=== PATIENT | female | born 1930 | race Caucasian/White ===

== ENCOUNTER 2019-01-30 15:26 | Inpatient (IN) | payer OTHER ==
[2019-01-30] MEDS ORDERED: DOCUSATE SODIUM 100 MG CAP PO (16:30)
[2019-01-30] MEDS ORDERED: BISACODYL (EC) 5 MG TAB PO (16:30)
[2019-01-30] MEDS ORDERED: ONDANSETRON 4 MG INJ IV (16:30)
[2019-01-30] MEDS ORDERED: NACL 0.9% 3 ML SYG IV (16:30)
[2019-01-30] MEDS ORDERED: ACETAMINOPHEN 650 MG SUPP PR (16:30)
[2019-01-30] MEDS ORDERED: ACETAMINOPHEN 325 MG TAB PO (16:30)
[2019-01-30] MEDS ORDERED: HYDROCODONE/APAP (5/325) TAB PO (16:30)
[2019-01-30] MEDS ORDERED: morphine 2 MG INJ IV (16:30)
[2019-01-30 17:22] LABS: MAGNESIUM 1.5 mg/dl (1.7-2.5)
[2019-01-30 17:22] LABS: ANION GAP 7 (5-13); BLOOD UREA NITROGEN 11 mg/dl (7-20); CALCIUM 7.5 mg/dl (8.4-10.2); CARBON DIOXIDE 22 mmol/L (21-31); CHLORIDE 89 mmol/L (97-110); CREATININE 0.62 mg/dl (0.44-1.00); GLUCOSE 86 mg/dl (70-220); URIC ACID 3.4 mg/dl (3.1-7.9)
[2019-01-30 17:41] LABS: SODIUM 118 mmol/L (135-144)
[2019-01-30 17:59] LABS: OSMOLALITY 240 mOsm/kg (280-295)
[2019-01-30] MEDS: NACL 3% 500 ML IV (18:27)
[2019-01-30] MEDS: MAGNESIUM SULFATE 2 GM/50 ML 50 ML IVPB (18:37)
[2019-01-30 20:38] LABS: URIC ACID 3.6 mg/dl (3.1-7.9)
[2019-01-30] MEDS ORDERED: FAMOTIDINE 20 MG TAB PO (21:00)
[2019-01-30] MEDS ORDERED: SOD CHLORIDE 0.9% 1,000 ML IV (23:00)
[2019-01-30] MEDS: FAMOTIDINE 20 MG TAB PEG (23:03)
[2019-01-30 23:27] LABS: SODIUM 119 mmol/L (135-144)
[2019-01-30 23:27] LABS: ADD UMIC YES; UR ASCORBIC ACID NEGATIVE (NEGATIVE); UR BILIRUBIN (Dip) NEGATIVE (NEGATIVE); UR BLOOD (Dip) 3+ mg/dL (NEGATIVE); UR CLARITY SLIGHTLY CLOUDY (CLEAR); UR COLOR RED (YELLOW); UR GLUCOSE (Dip) NEGATIVE (NEGATIVE); UR KETONES (Dip) TRACE mg/dL (NEGATIVE); UR LEUKOCYTE ESTERASE (Dip) 3+ Leu/ul (NEGATIVE); UR NITRITE (Dip) NEGATIVE (NEGATIVE); UR RBC > 182 /HPF (0-5); UR SPECIFIC GRAVITY (Dip) 1.009 (1.003-1.030); UR TOTAL PROTEIN (Dip) 1+ mg/dl (NEGATIVE); UR UROBILINOGEN (Dip) NEGATIVE (NEGATIVE); UR WBC 45 /HPF (0-5)
[2019-01-30 23:40] LABS: CREATININE,URINE RANDOM 26.03 mg/dl (20-320)
[2019-01-30 23:40] LABS: SODIUM,URINE RANDOM 86 mmol/L (30-90)
[2019-01-30 23:57] LABS: OSMOLALITY,URINE 313 mOsm/kg (250-1200)
[2019-01-31 05:00] LABS: ADD MAN DIFF? NO; HAAIG REFLEX REFLEX FILED
[2019-01-31 05:10] LABS: ABNORMAL IP MESSAGE 1; BASOPHILS % 0.6 % (0.0-2.0); EOSINOPHILS # 0.1 10^3/ul (0.0-0.5); EOSINOPHILS % 2.7 % (0.0-7.0); HEMOGLOBIN 10.1 g/dl (12.0-16.0); LYMPHOCYTES # 0.5 10^3/ul (0.8-2.9); LYMPHOCYTES % 10.4 % (15.0-51.0); MEAN CORPUSCULAR HEMOGLOBIN 29.5 pg (29.0-33.0); MEAN CORPUSCULAR HGB CONC 33.7 g/dl (32.0-37.0); MEAN CORPUSCULAR VOLUME 87.7 fl (82.0-101.0); MEAN PLATELET VOLUME 9.2 fl (7.4-10.4); MONOCYTE # 0.5 10^3/ul (0.3-0.9); MONOCYTES % 9.6 % (0.0-11.0); NEUTROPHIL # 3.6 10^3/ul (1.6-7.5); NEUTROPHILS % 74.8 % (39.0-77.0); PLATELET COUNT 701 10^3/UL (140-415); RED BLOOD COUNT 3.42 10^6/ul (4.20-5.40); RED CELL DISTRIBUTION WIDTH 14.4 % (11.5-14.5)
[2019-01-31 05:10] LABS: WHITE BLOOD COUNT 4.8 10^3/ul (4.8-10.8)
[2019-01-31 05:15] LABS: PATH REVIEW? YES-PATH TO CONFIRM; POSITIVE DIFF @See below
[2019-01-31 05:26] LABS: HEMOGLOBIN A1C 5.1 % (0-5.9)
[2019-01-31 05:29] LABS: ALANINE AMINOTRANSFERASE 50 IU/L (13-69); ALBUMIN 2.6 g/dl (3.3-4.9); ALBUMIN/GLOBULIN RATIO 0.78; ALKALINE PHOSPHATASE 193 IU/L (42-121); ANION GAP 7 (5-13); ASPARTATE AMINO TRANSFERASE 84 IU/L (15-46); BILIRUBIN,INDIRECT 0.4 mg/dl (0-1.1); BILIRUBIN,TOTAL 0.4 mg/dl (0.2-1.3); BLOOD UREA NITROGEN 9 mg/dl (7-20); CALCIUM 7.7 mg/dl (8.4-10.2); CARBON DIOXIDE 21 mmol/L (21-31); CHLORIDE 95 mmol/L (97-110); CREATININE 0.66 mg/dl (0.44-1.00); GLUCOSE 79 mg/dl (70-220); MAGNESIUM 2.5 mg/dl (1.7-2.5); PHOSPHORUS 2.3 mg/dl (2.5-4.9); POTASSIUM 3.5 mmol/L (3.5-5.1); SODIUM 123 mmol/L (135-144); TOTAL PROTEIN 5.9 g/dl (6.1-8.1)
[2019-01-31 05:30] LABS: CHOL/HDL RATIO 7.5 RATIO; HDL CHOLESTEROL 34 mg/dl (33-92); LDL CHOLESTEROL,CALCULATED 199 mg/dl; TRIGLYCERIDES 108 mg/dl (0-149)
[2019-01-31 05:30] LABS: CHOLESTEROL 255 mg/dl (100-200)
[2019-01-31 05:59] LABS: HEPATITIS B SURFACE ANTIGEN NEGATIVE (NEGATIVE)
[2019-01-31 06:17] LABS: HEPATITIS B CORE ANTIBODY NEGATIVE (NEGATIVE); HEPATITIS C VIRAL ANTIBODY NEGATIVE (NEGATIVE)
[2019-01-31 08:18] LABS: INR 0.93; PROTIME 12.6 Sec (11.9-14.9)
[2019-01-31 08:20] LABS: BAND NEUTROPHILS #M 0.1 10^3/ul (0.0-0.6); BAND NEUTROPHILS % (M) 3 % (0-4); BASOPHILS % (M) 1 % (0-2); BURR CELLS 1+ (0-0); EOSINOPHILS % (M) 1 % (0-7); LYMPHOCYTES #M 0.2 10^3/ul (0.8-2.9); LYMPHOCYTES % (M) 5 % (15-51); MONOCYTE #M 0.2 10^3/ul (0.3-0.9); MONOCYTES % (M) 5 % (0-11); OVALOCYTES 1+ (0-0); PLATELET ESTIMATE INCREASED; POIKILOCYTOSIS 1+ (0-0); POLYCHROMASIA 1+ (0-0); REACTIVE LYMPHOCYTES% (M) 1 % (0-0); SEGMENTED NEUTROPHILS (M) % 84 % (39-77); SMUDGE%M 4 % (0-0)
[2019-01-31] MEDS ORDERED: ENOXAPARIN 30 MG/0.3 ML SYG SC (09:00)
[2019-01-31 12:45] LABS: SODIUM 124 mmol/L (135-144)
[2019-01-31] MEDS: SOD CHLORIDE 0.9% 1,000 ML IV (19:08)
[2019-01-31 19:23] LABS: SODIUM 123 mmol/L (135-144)
[2019-01-31] MEDS: FAMOTIDINE 20 MG TAB PEG (20:52)
[2019-01-31] MEDS: HYDROCODONE/APAP (5/325) TAB PEG (22:54)
[2019-02-01 04:51] LABS: ADD MAN DIFF? NO
[2019-02-01 04:59] LABS: WHITE BLOOD COUNT 3.7 10^3/ul (4.8-10.8)
[2019-02-01 04:59] LABS: BASOPHILS % 0.5 % (0.0-2.0); EOSINOPHILS # 0.3 10^3/ul (0.0-0.5); EOSINOPHILS % 8.4 % (0.0-7.0); HEMATOCRIT 28.4 % (37.0-47.0); HEMOGLOBIN 9.6 g/dl (12.0-16.0); LYMPHOCYTES # 0.6 10^3/ul (0.8-2.9); LYMPHOCYTES % 16.8 % (15.0-51.0); MEAN CORPUSCULAR HEMOGLOBIN 30.2 pg (29.0-33.0); MEAN CORPUSCULAR HGB CONC 33.8 g/dl (32.0-37.0); MEAN CORPUSCULAR VOLUME 89.3 fl (82.0-101.0); MEAN PLATELET VOLUME 9.3 fl (7.4-10.4); MONOCYTE # 0.4 10^3/ul (0.3-0.9); MONOCYTES % 11.4 % (0.0-11.0); NEUTROPHIL # 2.3 10^3/ul (1.6-7.5); NEUTROPHILS % 61.5 % (39.0-77.0); PLATELET COUNT 636 10^3/UL (140-415); RED BLOOD COUNT 3.18 10^6/ul (4.20-5.40); RED CELL DISTRIBUTION WIDTH 14.6 % (11.5-14.5)
[2019-02-01 05:49] LABS: ANION GAP 3 (5-13); BLOOD UREA NITROGEN 12 mg/dl (7-20); CALCIUM 7.8 mg/dl (8.4-10.2); CARBON DIOXIDE 25 mmol/L (21-31); CHLORIDE 99 mmol/L (97-110); GLUCOSE 105 mg/dl (70-220); MAGNESIUM 1.9 mg/dl (1.7-2.5); POTASSIUM 3.2 mmol/L (3.5-5.1); SODIUM 127 mmol/L (135-144)
[2019-02-01] MEDS: POTASSIUM CHLORIDE 20 MEQ POWDER FOR ORAL SOLN GTB (07:52)
[2019-02-01] MEDS: MAGNESIUM SULFATE 1 GM/D5W 100 ML IVPB (07:52)
[2019-02-01 09:06] LABS: OCCULT BLOOD STOOL POSITIVE (NEGATIVE)
[2019-02-01] MEDS: ENOXAPARIN 30 MG/0.3 ML SYG SC (09:32)
[2019-02-01] MEDS: SOD CHLORIDE 0.9% 1,000 ML IV ×2 (09:32→21:11)
[2019-02-01 13:48] LABS: ANION GAP 3 (5-13); BLOOD UREA NITROGEN 11 mg/dl (7-20); CALCIUM 7.6 mg/dl (8.4-10.2); CARBON DIOXIDE 23 mmol/L (21-31); CHLORIDE 103 mmol/L (97-110); CREATININE 0.47 mg/dl (0.44-1.00); GLUCOSE 106 mg/dl (70-220); SODIUM 129 mmol/L (135-144)
[2019-02-01] MEDS: LABETALOL HCL 20MG INJ IV (16:38)
[2019-02-01] MEDS ORDERED: HYDROCORTISONE 25 MG SUPP PR (17:30)
[2019-02-01] MEDS ORDERED: METOPROLOL 25 MG TAB GTB (17:30)
[2019-02-01 17:40] LABS: ANION GAP 2 (5-13); BLOOD UREA NITROGEN 12 mg/dl (7-20); CALCIUM 7.7 mg/dl (8.4-10.2); CARBON DIOXIDE 25 mmol/L (21-31); CHLORIDE 102 mmol/L (97-110); CREATININE 0.49 mg/dl (0.44-1.00); GLUCOSE 111 mg/dl (70-220); POTASSIUM 4.7 mmol/L (3.5-5.1); SODIUM 129 mmol/L (135-144)
[2019-02-01] MEDS: FAMOTIDINE 20 MG TAB PEG (21:10)
[2019-02-01] MEDS: METOPROLOL 25 MG TAB GTB (21:11)
[2019-02-01 21:33] LABS: ANION GAP 2 (5-13); BLOOD UREA NITROGEN 12 mg/dl (7-20); CALCIUM 7.4 mg/dl (8.4-10.2); CARBON DIOXIDE 23 mmol/L (21-31); CHLORIDE 101 mmol/L (97-110); CREATININE 0.44 mg/dl (0.44-1.00); GLUCOSE 94 mg/dl (70-220); POTASSIUM 4.8 mmol/L (3.5-5.1); SODIUM 126 mmol/L (135-144)
[2019-02-02 04:57] LABS: ADD MAN DIFF? NO
[2019-02-02 05:39] LABS: ANION GAP 3 (5-13); BLOOD UREA NITROGEN 11 mg/dl (7-20); CALCIUM 7.5 mg/dl (8.4-10.2); CARBON DIOXIDE 24 mmol/L (21-31); CHLORIDE 100 mmol/L (97-110); CREATININE 0.44 mg/dl (0.44-1.00); GLUCOSE 86 mg/dl (70-220); POTASSIUM 4.9 mmol/L (3.5-5.1); SODIUM 127 mmol/L (135-144)
[2019-02-02 06:32] LABS: WHITE BLOOD COUNT 5.6 10^3/ul (4.8-10.8)
[2019-02-02 06:32] LABS: BASOPHILS % 0.5 % (0.0-2.0); EOSINOPHILS # 0.6 10^3/ul (0.0-0.5); EOSINOPHILS % 10.4 % (0.0-7.0); HEMATOCRIT 28.2 % (37.0-47.0); HEMOGLOBIN 9.3 g/dl (12.0-16.0); LYMPHOCYTES # 0.9 10^3/ul (0.8-2.9); LYMPHOCYTES % 16.9 % (15.0-51.0); MEAN CORPUSCULAR HEMOGLOBIN 29.8 pg (29.0-33.0); MEAN CORPUSCULAR VOLUME 90.4 fl (82.0-101.0); MEAN PLATELET VOLUME 9.4 fl (7.4-10.4); MONOCYTE # 0.5 10^3/ul (0.3-0.9); MONOCYTES % 9.7 % (0.0-11.0); NEUTROPHIL # 3.4 10^3/ul (1.6-7.5); NEUTROPHILS % 61.6 % (39.0-77.0); PLATELET COUNT 623 10^3/UL (140-415); RED BLOOD COUNT 3.12 10^6/ul (4.20-5.40); RED CELL DISTRIBUTION WIDTH 15.3 % (11.5-14.5)
[2019-02-02] MEDS: METOPROLOL 25 MG TAB GTB ×2 (08:28→21:00)
[2019-02-02] MEDS: LACTOBACILLUS RHAMNOSUS CAP GTB ×2 (08:28→21:19)
[2019-02-02] MEDS: ENOXAPARIN 30 MG/0.3 ML SYG SC (08:29)
[2019-02-02 13:44] LABS: ANION GAP 2 (5-13); BLOOD UREA NITROGEN 13 mg/dl (7-20); CALCIUM 7.7 mg/dl (8.4-10.2); CARBON DIOXIDE 25 mmol/L (21-31); CHLORIDE 98 mmol/L (97-110); CREATININE 0.47 mg/dl (0.44-1.00); GLUCOSE 104 mg/dl (70-220); POTASSIUM 4.3 mmol/L (3.5-5.1); SODIUM 125 mmol/L (135-144)
[2019-02-02 15:27] LABS: CREATININE, RANDOM URINE 29 mg/dL (20-275); MICROALBUMIN 6.2 mg/dL; MICROALBUMIN/CREATININE RATIO 214 (<30)
[2019-02-02 18:32] LABS: ANION GAP 4 (5-13); BLOOD UREA NITROGEN 14 mg/dl (7-20); CALCIUM 7.9 mg/dl (8.4-10.2); CARBON DIOXIDE 23 mmol/L (21-31); CHLORIDE 97 mmol/L (97-110); CREATININE 0.43 mg/dl (0.44-1.00); GLUCOSE 116 mg/dl (70-220); POTASSIUM 4.5 mmol/L (3.5-5.1); SODIUM 124 mmol/L (135-144)
[2019-02-02] MEDS: FAMOTIDINE 20 MG TAB PEG (21:19)
[2019-02-02 22:00] LABS: ANION GAP 4 (5-13); BLOOD UREA NITROGEN 15 mg/dl (7-20); CARBON DIOXIDE 25 mmol/L (21-31); CHLORIDE 96 mmol/L (97-110); CREATININE 0.48 mg/dl (0.44-1.00); GLUCOSE 104 mg/dl (70-220); POTASSIUM 4.5 mmol/L (3.5-5.1); SODIUM 125 mmol/L (135-144)
[2019-02-03 05:12] LABS: ADD MAN DIFF? NO
[2019-02-03 05:18] LABS: BASOPHILS % 0.5 % (0.0-2.0); EOSINOPHILS # 0.6 10^3/ul (0.0-0.5); EOSINOPHILS % 9.5 % (0.0-7.0); HEMATOCRIT 26.1 % (37.0-47.0); HEMOGLOBIN 8.9 g/dl (12.0-16.0); LYMPHOCYTES # 1.1 10^3/ul (0.8-2.9); LYMPHOCYTES % 18.8 % (15.0-51.0); MEAN CORPUSCULAR HGB CONC 34.1 g/dl (32.0-37.0); MEAN CORPUSCULAR VOLUME 87.9 fl (82.0-101.0); MEAN PLATELET VOLUME 9.2 fl (7.4-10.4); MONOCYTE # 0.7 10^3/ul (0.3-0.9); MONOCYTES % 11.4 % (0.0-11.0); NEUTROPHIL # 3.5 10^3/ul (1.6-7.5); NEUTROPHILS % 58.8 % (39.0-77.0); PLATELET COUNT 602 10^3/UL (140-415); RED BLOOD COUNT 2.97 10^6/ul (4.20-5.40)
[2019-02-03 05:18] LABS: WHITE BLOOD COUNT 5.9 10^3/ul (4.8-10.8)
[2019-02-03 05:47] LABS: ANION GAP 3 (5-13); BLOOD UREA NITROGEN 16 mg/dl (7-20); CALCIUM 8.3 mg/dl (8.4-10.2); CARBON DIOXIDE 26 mmol/L (21-31); CHLORIDE 95 mmol/L (97-110); CREATININE 0.51 mg/dl (0.44-1.00); GLUCOSE 94 mg/dl (70-220); POTASSIUM 4.7 mmol/L (3.5-5.1); SODIUM 124 mmol/L (135-144)
[2019-02-03] MEDS: CLOPIDOGREL 75 MG TAB GTB (08:04)
[2019-02-03] MEDS: METOPROLOL 25 MG TAB GTB ×2 (08:04→20:25)
[2019-02-03] MEDS: LACTOBACILLUS RHAMNOSUS CAP GTB ×2 (08:04→20:25)
[2019-02-03] MEDS: ENOXAPARIN 30 MG/0.3 ML SYG SC (08:05)
[2019-02-03] MEDS: SODIUM CHLORIDE 1 GM TAB PO ×3 (08:11→20:26)
[2019-02-03 14:39] LABS: ANION GAP 2 (5-13); BLOOD UREA NITROGEN 16 mg/dl (7-20); CALCIUM 7.9 mg/dl (8.4-10.2); CARBON DIOXIDE 25 mmol/L (21-31); CHLORIDE 97 mmol/L (97-110); CREATININE 0.45 mg/dl (0.44-1.00); GLUCOSE 99 mg/dl (70-220); POTASSIUM 4.9 mmol/L (3.5-5.1); SODIUM 124 mmol/L (135-144)
[2019-02-03 19:29] LABS: ANION GAP 2 (5-13); BLOOD UREA NITROGEN 17 mg/dl (7-20); CARBON DIOXIDE 26 mmol/L (21-31); CHLORIDE 96 mmol/L (97-110); CREATININE 0.49 mg/dl (0.44-1.00); GLUCOSE 100 mg/dl (70-220); POTASSIUM 4.6 mmol/L (3.5-5.1); SODIUM 124 mmol/L (135-144)
[2019-02-03] MEDS: FAMOTIDINE 20 MG TAB PEG (20:26)
[2019-02-04 06:50] LABS: ADD MAN DIFF? NO
[2019-02-04 06:54] LABS: BASOPHILS % 0.4 % (0.0-2.0); EOSINOPHILS # 0.5 10^3/ul (0.0-0.5); EOSINOPHILS % 9.3 % (0.0-7.0); HEMATOCRIT 25.9 % (37.0-47.0); HEMOGLOBIN 8.6 g/dl (12.0-16.0); LYMPHOCYTES % 18.4 % (15.0-51.0); MEAN CORPUSCULAR HGB CONC 33.2 g/dl (32.0-37.0); MEAN CORPUSCULAR VOLUME 90.2 fl (82.0-101.0); MEAN PLATELET VOLUME 9.4 fl (7.4-10.4); MONOCYTE # 0.5 10^3/ul (0.3-0.9); MONOCYTES % 9.1 % (0.0-11.0); NEUTROPHIL # 3.2 10^3/ul (1.6-7.5); NEUTROPHILS % 61.8 % (39.0-77.0); PLATELET COUNT 514 10^3/UL (140-415); RED BLOOD COUNT 2.87 10^6/ul (4.20-5.40); RED CELL DISTRIBUTION WIDTH 14.7 % (11.5-14.5)
[2019-02-04 06:54] LABS: WHITE BLOOD COUNT 5.2 10^3/ul (4.8-10.8)
[2019-02-04 07:23] LABS: BLOOD UREA NITROGEN 17 mg/dl (7-20); CALCIUM 8.3 mg/dl (8.4-10.2); CARBON DIOXIDE 25 mmol/L (21-31); CHLORIDE 96 mmol/L (97-110); CREATININE 0.54 mg/dl (0.44-1.00); GLUCOSE 119 mg/dl (70-220); MAGNESIUM 1.5 mg/dl (1.7-2.5); PHOSPHORUS 3.4 mg/dl (2.5-4.9); POTASSIUM 4.4 mmol/L (3.5-5.1)
[2019-02-04] MEDS: LACTOBACILLUS RHAMNOSUS CAP GTB ×2 (08:56→20:11)
[2019-02-04] MEDS: METOPROLOL 25 MG TAB GTB ×2 (08:56→20:12)
[2019-02-04] MEDS: CLOPIDOGREL 75 MG TAB GTB (08:56)
[2019-02-04] MEDS: SODIUM CHLORIDE 1 GM TAB PO ×3 (08:56→20:13)
[2019-02-04] MEDS: DEMECLOCYCLINE 150 MG TAB GTB ×2 (09:02→20:13)
[2019-02-04] MEDS: MAGNESIUM SULFATE 2 GM/50 ML 50 ML IVPB (09:02)
[2019-02-04 09:10] LABS: ANION GAP 4 (5-13); SODIUM 125 mmol/L (135-144)
[2019-02-04] MEDS: ENOXAPARIN 30 MG/0.3 ML SYG SC (09:23)
[2019-02-04] MEDS: HYDROCODONE/APAP (5/325) TAB PEG (20:12)
[2019-02-04] MEDS: BALSAM PERU/CASTOR OIL 60 GM TUBE TOP (20:13)
[2019-02-04] MEDS: FAMOTIDINE 20 MG TAB PEG (20:13)
[2019-02-05 05:50] LABS: ADD MAN DIFF? NO
[2019-02-05 05:56] LABS: BASOPHILS % 0.7 % (0.0-2.0); EOSINOPHILS # 0.5 10^3/ul (0.0-0.5); EOSINOPHILS % 8.8 % (0.0-7.0); HEMATOCRIT 26.8 % (37.0-47.0); HEMOGLOBIN 8.8 g/dl (12.0-16.0); LYMPHOCYTES # 0.9 10^3/ul (0.8-2.9); LYMPHOCYTES % 17.2 % (15.0-51.0); MEAN CORPUSCULAR HEMOGLOBIN 30.3 pg (29.0-33.0); MEAN CORPUSCULAR HGB CONC 32.8 g/dl (32.0-37.0); MEAN CORPUSCULAR VOLUME 92.4 fl (82.0-101.0); MEAN PLATELET VOLUME 9.3 fl (7.4-10.4); MONOCYTE # 0.8 10^3/ul (0.3-0.9); MONOCYTES % 14.5 % (0.0-11.0); NEUTROPHIL # 3.1 10^3/ul (1.6-7.5); NEUTROPHILS % 57.5 % (39.0-77.0); PLATELET COUNT 510 10^3/UL (140-415)
[2019-02-05 05:56] LABS: WHITE BLOOD COUNT 5.5 10^3/ul (4.8-10.8)
[2019-02-05 06:30] LABS: ANION GAP 3 (5-13); BLOOD UREA NITROGEN 19 mg/dl (7-20); CALCIUM 7.9 mg/dl (8.4-10.2); CARBON DIOXIDE 28 mmol/L (21-31); CHLORIDE 96 mmol/L (97-110); CREATININE 0.59 mg/dl (0.44-1.00); GLUCOSE 82 mg/dl (70-220); MAGNESIUM 1.8 mg/dl (1.7-2.5); PHOSPHORUS 3.3 mg/dl (2.5-4.9); POTASSIUM 4.5 mmol/L (3.5-5.1); SODIUM 127 mmol/L (135-144)
[2019-02-05] MEDS: METOPROLOL 25 MG TAB GTB ×2 (08:04→20:11)
[2019-02-05] MEDS: DEMECLOCYCLINE 150 MG TAB GTB ×2 (08:04→20:11)
[2019-02-05] MEDS: SODIUM CHLORIDE 1 GM TAB PO ×3 (08:05→20:10)
[2019-02-05] MEDS: LACTOBACILLUS RHAMNOSUS CAP GTB ×2 (08:05→20:10)
[2019-02-05] MEDS: BALSAM PERU/CASTOR OIL 60 GM TUBE TOP (08:05)
[2019-02-05] MEDS: CLOPIDOGREL 75 MG TAB GTB (08:05)
[2019-02-05] MEDS: ENOXAPARIN 30 MG/0.3 ML SYG SC (08:12)
[2019-02-05] MEDS: DOCUSATE SODIUM 10 MG/ML (10ML CUP) GTB (20:10)
[2019-02-05] MEDS: FAMOTIDINE 20 MG TAB PEG (20:11)
[2019-02-06 06:17] LABS: ANION GAP 4 (5-13); BLOOD UREA NITROGEN 23 mg/dl (7-20); CALCIUM 8.1 mg/dl (8.4-10.2); CARBON DIOXIDE 24 mmol/L (21-31); CHLORIDE 100 mmol/L (97-110); CREATININE 0.56 mg/dl (0.44-1.00); GLUCOSE 105 mg/dl (70-220); MAGNESIUM 1.6 mg/dl (1.7-2.5); PHOSPHORUS 3.1 mg/dl (2.5-4.9); POTASSIUM 4.2 mmol/L (3.5-5.1); SODIUM 128 mmol/L (135-144)
[2019-02-06] MEDS: SODIUM CHLORIDE 1 GM TAB PO ×2 (07:46→13:28)
[2019-02-06] MEDS: LACTOBACILLUS RHAMNOSUS CAP GTB (07:46)
[2019-02-06] MEDS: DEMECLOCYCLINE 150 MG TAB GTB (07:46)
[2019-02-06] MEDS: METOPROLOL 25 MG TAB GTB (07:46)
[2019-02-06] MEDS: CLOPIDOGREL 75 MG TAB GTB (07:46)
[2019-02-06] MEDS: MAGNESIUM SULFATE 2 GM/50 ML 50 ML IVPB (07:46)
[2019-02-06] MEDS: BALSAM PERU/CASTOR OIL 60 GM TUBE TOP (07:47)
[2019-02-06] MEDS: ENOXAPARIN 30 MG/0.3 ML SYG SC (07:54)
[2019-02-06] MEDS: ACETAMINOPHEN 325 MG TAB PEG (15:51)
== END 2019-02-06 23:15 | DRG 643 ==
LOC: ICU 15:26 → 6WM 02-03 22:12
DX: E22.2 Syndrome of inappropriate secretion of antidiuretic hormone (principal); G92 Toxic encephalopathy; E46 Unspecified protein-calorie malnutrition; E87.1 Hypo-osmolality and hyponatremia; R13.10 Dysphagia, unspecified; F01.50 Vascular dementia, unspecified severity, without behavioral disturbance, psychotic disturbance, mood disturbance, and anxiety; N18.9 Chronic kidney disease, unspecified; Z68.23 Body mass index [BMI] 23.0-23.9, adult; R33.9 Retention of urine, unspecified
CPT/HCPCS: 80048; 80053; 80061; 81001; 81003; 82043; 82270; 82533; 83036; 83735; 83930; 83935; 84100; 84155; 84295; 84300; 84443; 84560; 85025; 85610; 86704; 86709; 86803; 87340; 92507; 92523; 92526; 92610; 93005; 93306; 93880; 93922; 97163